=== PATIENT | female | born 1960 | race American Indian/Alaskan Native ===

== ENCOUNTER 2019-10-16 06:16 | Day surgery (SDC) | payer OTHER ==
[2019-10-16] MEDS ORDERED: SODIUM CHLORIDE 0.9% 1000 ML 1,000 ML IV SCH (07:00)
--- NOTE | 2019-10-16 07:51 | Anesthesia Day of Surgery ---
Anesthesia Day of Surgery - Day of Surgery Patient Examined: No Patient H&P Reviewed: No Patient is NPO: No
--- NOTE | 2019-10-16 07:51 | Anesthesia Consultation ---
Anesthesia Consult and Med Hx Date of service: 10/16/19 - Airway Anesthetic Teeth Evaluation: Good, Partials ROM Head & Neck: Adequate Mental/Hyoid Distance: Adequate Mallampati Class: Class II Intubation Access Assessment: Probably Good - Pulmonary Exam CTA: Yes - Cardiac Exam Cardiac Exam: RRR - Pre-Operative Health Status ASA Pre-Surgery Classification: ASA1 Proposed Anesthetic Plan: MAC - Pulmonary Hx Respiratory Symptoms: No - Cardiovascular System Hx Hypertension: No Hx Cardia Arrhythmia: No - Central Nervous System Hx Neuromuscular Disorder: No Hx Psychiatric Problems: No - Gastrointestinal Hx Gastroesophageal Reflux Disease: No - Endocrine Hx Renal Disease: No Hx Non-Insulin Dependent Diabetes: No Hx Thyroid Disease: No - Hematic Hx Anemia: No - Other Systems Hx Alcohol Use: No Hx Substance Use: No Hx Obesity: Yes (BMI- 34.2kg) - Additional Comments Anesthesia Medical History Comments: Patient denied previous anesthesia related complications.
[2019-10-16] MEDS ORDERED: WATER FOR IRRIG STERILE 250 ML BOTTLE IR ONE (07:53)
[2019-10-16] MEDS ORDERED: WATER FOR IRRIG STERILE 1,000 ML BOTTLE ONE (07:53)
[2019-10-16] MEDS ORDERED: LIDOCAINE MPF (2%) 20 MG/1 ML VIAL 5 ML ONE (08:00)
[2019-10-16] MEDS ORDERED: PROPOFOL 200 MG/20 ML VIAL IV ONE ×2 (08:09→08:10)
--- NOTE | 2019-10-16 08:34 | Short Stay Summary ---
Short Stay Documentation Date of service: 10/16/19 Narrative H&P: Patient is a 59 yo female who presents for screening colonoscopy. Denies gi complaints or prior screening colonoscopy. - History Past Medical History: other (no changes from office note) Past Surgical History: Other (no changes) Social history: no significant social history - Allergies and Medications Current Medications: Allergies No Known Allergies Allergy (Unverified 10/14/19 17:48) Home Medications Medication Instructions Recorded Confirmed Last Taken Type No Known Home Medications [No 10/14/19 10/14/19 Unknown History Reported Home Medications] Active Medications Sodium Chloride (Nacl 0.9% 1000 Ml) 1,000 mls @ 50 mls/hr IV DIRECT PAUL Last Admin: 10/16/19 07:41 Dose: 50 mls/hr Documented by: - Physical exam General appearance: no acute distress Lungs: Clear to auscultation Heart: Regular rate, Normal S1, Normal S2 Gastrointestinal: normal - Brief post op/procedure progress note Date of procedure: 10/16/19 Pre-op diagnosis: screening for colon cancer Post-op diagnosis: other (colon polyps removed, mild diveticulosis, hemorrhoids) Procedure: EGD with cold biopsy polypectomy Anesthesia: MAC Findings: 1. Colon polyps x 4 removed (all < 5 mm) 2. Mild diverticulosis 3. Internal hemorrhoids Surgeon: CAITLYN OTERO Estimated blood loss: minimal Pathology: list (1. hepatic flexure polyp, 2. descending colon polyp x 2; 3. sigmoid polyp x 2) - Disposition Condition at discharge: Good Disposition: DC-01 TO HOME OR SELFCARE Short Stay Discharge Plan Follow up with: ELAINA MONTAÑO MD [Primary Care Provider] - 7 Days
--- NOTE | 2019-10-16 08:37 | Operative Report ---
Operative Report Operative Report: Colonoscopy Procedure Note with Cold biopsy polypectomy Date of procedure: 10/16/2019 Endoscopist: Maximilian Miguel Pre-op diagnosis: Screening for colon cancer Post-op diagnosis: colon polyps, diverticulosis, internal hemorrhoids Anesthesia: MAC Complications: No immediate complications Estimated blood loss: minimal Procedure: After consent was obtained, the patient was placed in the left lateral decubitus position. The olympus colonoscope was inserted into the patient's rectum under direct vision, and advanced to the cecum without difficulty. The patient tolerated the procedure well. The views of the mucosa were good. The quality of prep was good. The patient's vital signs were monitored continuously throughout the procedure. Findings: There was a 2 mm sessile polyp in the hepatic flexure. The polyp was removed and retrieved with cold biopsy forceps. There were two sessile polyps, 2-3 mm in size, in the descending colon. Both polyps were removed and retrieved with cold biopsy forceps. There were two sessile polyps, ~2 mm in size, in the sigmoid colon. Both polyps were removed and retrieved with cold biopsy forceps. Few small diverticula in the left colon. Internal hemorrhoids were visualized on retroflexion view. Impression: 1. Colon polyps x 4 removed with cold biopsy forceps as above 2. Mild diverticulosis 3. Internal hemorrhoids Recommendations: -follow up pathology -high fiber diet daily -repeat colonoscopy for surveillance in 3-5 years based on pathology results
[2019-10-16 09:16] VITALS: BP 150/88
--- NOTE | 2019-10-16 13:38 | Post Anesthesia Evaluation ---
- Post Anesthesia Evaluation Patient Participated: Yes Airway Patent: Yes Stable Respiratory Function: Yes Nausea/Vomiting: No Temp > 96.8F: Yes Pain Manageable: Yes Adequeate Hydration: Yes Anesthesia Complications: No Block Receding Appropriately: Not Applicable Patient on Ventilator: No
== END 2019-10-16 06:17 | disposition home or self-care (01) ==
LOC: GIO 06:16
PROVIDERS: ATTEND Internal Medicine Gastroenterology
DX: Z12.11 Encounter for screening for malignant neoplasm of colon (principal); D12.4 Benign neoplasm of descending colon; D12.5 Benign neoplasm of sigmoid colon; K57.30 Diverticulosis of large intestine without perforation or abscess without bleeding; K64.8 Other hemorrhoids; E66.9 Obesity, unspecified; Z68.34 Body mass index [BMI] 34.0-34.9, adult; Z79.899 Other long term (current) drug therapy
CPT/HCPCS: 45380; 88305; J2704; J7030